=== PATIENT | male | born 1995 | race African-American/Black ===

== ENCOUNTER 2021-04-28 07:07 | Emergency (ER) | payer SELFPAY ==
[~2021-04-28] VITALS: Ht 180.3 cm; Wt 72.6 kg
[2021-04-28 07:13] VITALS: BP_SYST 147
[2021-04-28] MEDS ORDERED: IBUPROFEN 600 MG TABLET PO ONE (07:15)
[2021-04-28] MEDS ORDERED: IBUPROFEN 600 MG TABLET ONE (07:20)
== END 2021-04-28 07:36 ==
LOC: SED 07:07
DX: S60.519A Abrasion of unspecified hand, initial encounter (principal); M54.9 Dorsalgia, unspecified; R45.1 Restlessness and agitation; Y04.0XXA Assault by unarmed brawl or fight, initial encounter; Y93.89 Activity, other specified; Y92.89 Other specified places as the place of occurrence of the external cause; Y99.8 Other external cause status
CPT/HCPCS: 99283